=== PATIENT | female | born 1970 | race Caucasian/White ===

== ENCOUNTER 2018-06-09 21:23 | Emergency (ER) | payer OTHER ==
--- NOTE | 2018-06-09 22:21 | EDPHY ---
H & P Stated Complaint: nausea, dizzy, poss altitude sickness Time Seen by Provider: 06/09/18 22:21 HPI/ROS: HPI CHIEF COMPLAINT: Possible altitude illness. HISTORY OF PRESENT ILLNESS: 47-year-old female history of CVA with history of left-sided residual weakness however improved after extensive physical therapy, presents to the emergency room stating that she thinks she may have altitude illness. She just relocated here from [facility] with her . They been here for 2 weeks. Over last week to week and half she has felt somewhat ill. She states that she feels fatigued, nauseous, generalized weakness, at times dizziness, at time slow to respond, headache. This has been worse over the last three days, but present for the last week. She denies any chest pain, denies focal weakness, denies focal numbness or tingling, denies shortness of breath, denies productive cough, denies fever. She states over the last 3 days her symptoms have gotten worse with increasing fatigue, generalized weakness, nausea, headache, and at times dizzy. Past Medical History: History of Cryptogenic CVA. Past Surgical History: Denies recent surgical history Social History: Denies drugs alcohol tobacco. Family History: Noncontributory ROS REVIEW OF SYSTEMS: 10 Systems were reviewed and negative with the exception of the elements mentioned in the history of present illness. Exam Constitutional appears well nontoxic no acute distress triage nursing summary reviewed, vital signs reviewed, awake/alert. Vital signs stable. Eyes normal conjunctivae and sclera, EOMI, PERRLA. HENT normal inspection, atraumatic, moist mucus membranes, no epistaxis, neck supple/ no meningismus, no raccoon eyes. Respiratory clear to auscultation bilaterally, normal breath sounds, no respiratory distress, no wheezing. Cardiovascular rate normal, regular rhythm, no murmur, no edema, distal pulses normal. Gastrointestinal soft, non-tender, no rebound, no guarding, normal bowel sounds, no distension, no pulsatile mass. Genitourinary no CVA tenderness. Musculoskeletal no midline vertebral tenderness, full range of motion, no calf swelling, no tenderness of extremities, no meningismus, good pulses, neurovascularly intact. Skin pink, warm, & dry, no rash, skin atraumatic. Neurologic awake, alert and oriented x 3, AAOx3, moves all 4 extremities equally, motor intact, sensory intact, CN II-XII intact, normal cerebellar, normal vision, normal speech. Psychiatric normal mood/affect. Heme/Lymph/Immune no lymphadenopathy. Differential Diagnosis: Includes but is not limited to in a particular order infection, altitude illness, dehydration, electrolyte disturbance, pneumonia, UTI, influenza, CVA, ACS Medical Decision Making: Plan for this patient IV establishment IV fluid bolus , EKG, troponin, CT scan of the head without contrast, chest x-ray, electrolytes and influenza, UA and re-evaluate. Re-evaluation: CT scan head without contrast negative for acute bleed or stroke. Called to me by Dr. Matamoros. The chest x-ray unremarkable. Blood work reviewed. Negative influenza Elevated LFTs. EKG interpretation by me on record in [employer] system. Impression time of EKG 2300, sinus rhythm rate of 85, RVH present, Q-waves noted inferior to 3 AVF , no ST elevation. No ST depression. Intervals appropriate. 0225: I did go re-evaluate the patient she states she complains of nausea and lightheadedness and headache still. Slightly improved. Patient denies any chest pain or shortness of breath. Denies fever. 0226am: I offered her hospital admission for observation IV hydration and nausea control she is debating if she wants to stay. 0313AM: Patient re-evaluated this time she is declining hospital admission does not want stay wants to go home. I explained to her it is unclear etiology of her symptoms a could be altitude illness. However she has been in [place] for 2 weeks. She does tell me she feels much better after nausea medicine, and IV fluids and oxygen. States her headache resolved. Nausea resolved. Requesting discharge. I will give her take-home pack of Zofran, additionally encouraged to drink lots of fluids. She is interested in getting oxygen is very hard to set up in the middle the night at 3:15 a.m. In the morning. I will have case management follow up with her. Additionally I explained if she has worsening symptoms including shortness of breath, headache, nausea, vomiting, chest pain she needs return emergency room she is comfortable this plan. There is a for discharge under not to stay. I did explain to her that she has elevated liver enzymes and she should have this followed up. The patient reports to me that she was told years ago she had elevated liver enzymes. Do recommend she follows up with primary care doctor have these recheck. Chest x-ray reviewed negative CT scan head without contrast reviewed negative Plan for patient she wants to go home declining hospital observation and admission. Prescription be provided for Zofran Return precautions discussed with her and her return emergency room if worsening symptoms. Comfortable this plan. Source: Patient - Personal History LMP (Females 10-55): 15-21 Days Ago Current Tetanus Diphtheria and Acellular Pertussis (TDAP): Yes - Medical/Surgical History Hx Asthma: No Hx Chronic Respiratory Disease: No Hx Diabetes: No Hx Cardiac Disease: Yes Hx Renal Disease: No Hx Cirrhosis: No Hx Alcoholism: No Hx HIV/AIDS: No Hx Splenectomy or Spleen Trauma: No Other PMH: stroke, pfo closure, heart monitor, - Social History Smoking Status: Never smoked Constitutional: Initial Vital Signs Temperature (C) 37 C 06/09/18 21:36 Heart Rate 99 06/09/18 21:36 Respiratory Rate 20 06/09/18 21:36 Blood Pressure 150/107 H 06/09/18 21:36 O2 Sat (%) 93 06/09/18 21:36 O2 Delivery Mode Room Air O2 (L/minute) 2 Allergies/Adverse Reactions: iodine Allergy (Verified 06/09/18 21:32) Home Medications: Medication Instructions Recorded Aspirin 81mg (*) 06/09/18 Atorvastatin Calcium 06/09/18 CLONAZEPAM 06/09/18 Cyclobenzaprine 06/09/18 Gabapentin 06/09/18 Plavix 06/09/18 Prazosin HCl 06/09/18 Propranolol HCl 06/09/18 VYVANSE 06/09/18 Wellbutrin Sr 06/09/18 Medical Decision Making - Diagnostics Imaging Results: Imaging Impressions Chest X-Ray 06/09/18 22:41 Impression: Negative. Head CT 06/09/18 22:47 Impression: Head CT within normal limits. Results called to Dr. Luke at 11:18 PM General information for patients regarding this examination can be found at [email or web address]. If you have questions or comments about this report, please contact me at (hospital) or [phone] (cell). - Data Points Laboratory Results: Laboratory Results 06/09/18 22:30 06/09/18 22:30 1206/10/18 06/10/18 02:53 00:10 00:10 WBC RBC Hgb Hct MCV MCH MCHC RDW Plt Count MPV Neut % (Auto) Lymph % (Auto) [place] % (Auto) Eos % (Auto) Baso % (Auto) Nucleat RBC Rel Count Absolute Neuts (auto) Absolute Lymphs (auto) Absolute Monos (auto) Absolute Eos (auto) Absolute Basos (auto) Absolute Nucleated RBC Immature Gran % Immature Gran # PT INR APTT Sodium Potassium Chloride Carbon Dioxide Anion Gap BUN Creatinine Estimated GFR Glucose Calcium Magnesium Total Bilirubin Conjugated Bilirubin Unconjugated Bilirubin AST ALT Alkaline Phosphatase POC Troponin I 0.00 ng/mL ng/mL (0.00-0.08) NT-Pro-B Natriuret Pep Total Protein Albumin Lipase Beta HCG, Qual Urine Color YELLOW Urine Appearance CLEAR Urine pH 5.0 (5.0-7.5) Ur Specific Mobile 1.010 (1.002-1.030) Urine Protein NEGATIVE (NEGATIVE) Urine Ketones NEGATIVE (NEGATIVE) Urine Blood NEGATIVE (NEGATIVE) Urine Nitrate NEGATIVE (NEGATIVE) Urine Bilirubin NEGATIVE (NEGATIVE) Urine Urobilinogen NEGATIVE EU EU (0.2-1.0) Ur Leukocyte Esterase NEGATIVE (NEGATIVE) Urine Glucose NEGATIVE (NEGATIVE) Nasal Influenza A PCR Nasal Influenza B PCR Urine Opiates Screen NEGATIVE (NEGATIVE) Urine Barbiturates NEGATIVE (NEGATIVE) Ur Phencyclidine Scrn NEGATIVE (NEGATIVE) Ur Amphetamine Screen NON-NEGATIVE H (NEGATIVE) U Benzodiazepines Scrn NEGATIVE (NEGATIVE) Urine Cocaine Screen NEGATIVE (NEGATIVE) U Marijuana (THC) Screen NON-NEGATIVE H (NEGATIVE) 06/09/18 06/09/18 06/09/18 23:04 22:30 22:30 WBC RBC Hgb Hct MCV MCH MCHC RDW Plt Count MPV Neut % (Auto) Lymph % (Auto) [place] % (Auto) Eos % (Auto) Baso % (Auto) Nucleat RBC Rel Count Absolute Neuts (auto) Absolute Lymphs (auto) Absolute Monos (auto) Absolute Eos (auto) Absolute Basos (auto) Absolute Nucleated RBC Immature Gran % Immature Gran # PT INR APTT Sodium 137 mEq/L mEq/L (135-145) Potassium 4.1 mEq/L mEq/L (3.5-5.2) Chloride 106 mEq/L mEq/L (97-110) Carbon Dioxide 23 mEq/l mEq/l (22-31) Anion Gap 8 mEq/L mEq/L (6-14) BUN 13 mg/dL mg/dL (7-23) Creatinine 1.1 mg/dL H mg/dL (0.6-1.0) Estimated GFR 53 Glucose 110 mg/dL H mg/dL (70-100) Calcium 9.7 mg/dL mg/dL (8.5-10.4) Magnesium 2.1 mg/dL mg/dL (1.6-2.3) Total Bilirubin 0.6 mg/dL mg/dL (0.1-1.4) Conjugated Bilirubin 0.3 mg/dL mg/dL (0.0-0.5) Unconjugated Bilirubin 0.3 mg/dL mg/dL (0.0-1.1) AST 107 IU/L H IU/L (14-46) ALT 272 IU/L H IU/L (9-52) Alkaline Phosphatase 136 IU/L H IU/L (38-126) POC Troponin I NT-Pro-B Natriuret Pep 38 pg/mL pg/mL (0-125) Total Protein 7.7 g/dL g/dL (6.3-8.2) Albumin 4.7 g/dL g/dL (3.5-5.0) Lipase 75 IU/L IU/L (23-300) Beta HCG, Qual NEGATIVE Urine Color Urine Appearance Urine pH Ur Specific Mobile Urine Protein Urine Ketones Urine Blood Urine Nitrate Urine Bilirubin Urine Urobilinogen Ur Leukocyte Esterase Urine Glucose Nasal Influenza A PCR NEGATIVE FOR FLU A (NEGATIVE) Nasal Influenza B PCR NEGATIVE FOR FLU B (NEGATIVE) Urine Opiates Screen Urine Barbiturates Ur Phencyclidine Scrn Ur Amphetamine Screen U Benzodiazepines Scrn Urine Cocaine Screen U Marijuana (THC) Screen 06/09/18 06/09/18 22:30 22:30 WBC 6.40 10^3/uL 10^3/uL (3.80-9.50) RBC 5.07 10^6/uL 10^6/uL (4.18-5.33) Hgb 15.9 g/dL g/dL (12.6-16.3) Hct 46.4 % % (38.0-47.0) MCV 91.5 fL fL (81.5-99.8) MCH 31.4 pg pg (27.9-34.1) MCHC 34.3 g/dL g/dL (32.4-36.7) RDW 13.3 % % (11.5-15.2) Plt Count 258 10^3/uL 10^3/uL (150-400) MPV 10.0 fL fL (8.7-11.7) Neut % (Auto) 53.0 % % (39.3-74.2) Lymph % (Auto) 35.6 % % (15.0-45.0) [place] % (Auto) 7.0 % % (4.5-13.0) Eos % (Auto) 3.3 % % (0.6-7.6) Baso % (Auto) 0.8 % % (0.3-1.7) Nucleat RBC Rel Count 0.0 % % (0.0-0.2) Absolute Neuts (auto) 3.39 10^3/uL 10^3/uL (1.70-6.50) Absolute Lymphs (auto) 2.28 10^3/uL 10^3/uL (1.00-3.00) Absolute Monos (auto) 0.45 10^3/uL 10^3/uL (0.30-0.80) Absolute Eos (auto) 0.21 10^3/uL 10^3/uL (0.03-0.40) Absolute Basos (auto) 0.05 10^3/uL 10^3/uL (0.02-0.10) Absolute Nucleated RBC 0.00 10^3/uL 10^3/uL (0-0.01) Immature Gran % 0.3 % % (0.0-1.1) Immature Gran # 0.02 10^3/uL 10^3/uL (0.00-0.10) PT 12.1 SEC SEC (12.0-15.0) INR 0.87 (0.83-1.16) APTT 25.3 SEC SEC (23.0-38.0) Sodium Potassium Chloride Carbon Dioxide Anion Gap BUN Creatinine Estimated GFR Glucose Calcium Magnesium Total Bilirubin Conjugated Bilirubin Unconjugated Bilirubin AST ALT Alkaline Phosphatase POC Troponin I NT-Pro-B Natriuret Pep Total Protein Albumin Lipase Beta HCG, Qual Urine Color Urine Appearance Urine pH Ur Specific Mobile Urine Protein Urine Ketones Urine Blood Urine Nitrate Urine Bilirubin Urine Urobilinogen Ur Leukocyte Esterase Urine Glucose Nasal Influenza A PCR Nasal Influenza B PCR Urine Opiates Screen Urine Barbiturates Ur Phencyclidine Scrn Ur Amphetamine Screen U Benzodiazepines Scrn Urine Cocaine Screen U Marijuana (THC) Screen Medications Given: Discontinued Medications Sodium Chloride (Ns) 1,000 mls @ 0 mls/hr IV EDNOW ONE; Wide Open PRN Reason: Protocol Stop: 06/09/18 22:42 Last Admin: 06/09/18 22:52 Dose: 1,000 mls Sodium Chloride (Ns) 1,000 mls @ 0 mls/hr IV ONCE ONE PRN Reason: Wide Open Stop: 06/10/18 01:09 Last Admin: 06/10/18 01:11 Dose: 1,000 mls Ondansetron HCl (Zofran) 4 mg IVP EDNOW ONE Stop: 06/09/18 22:42 Last Admin: 06/09/18 22:53 Dose: 4 mg Point of Care Test Results: Chemistry 06/10/18 02:53 POC Troponin I 0.00 ng/mL ng/mL (0.00-0.08) Departure - Departure Disposition: Home, Routine, Self-Care Clinical Impression: Lightheadedness, Nausea Fatigue Qualifiers: Fatigue type: unspecified Qualified Code(s): R53.83 - Other fatigue Headache Qualifiers: Headache type: tension-type Headache chronicity pattern: chronic headache Intractability: not intractable Qualified Code(s): G44.229 - Chronic tension- type headache, not intractable Condition: Good Instructions: Lightheadedness (ED), General Headache (ED) Additional Instructions: 1. Rest 2. Stay well-hydrated 3. Return emergency room if worsening symptoms 4. Follow up with her primary care doctor about your elevated liver enzymes 5. Return if not doing well. Referrals: NONE *PRIMARY CARE P,. [Primary Care Provider] - As per Instructions Jamin Burdick MD [Medical Doctor] - As per Instructions
[2018-06-09] MEDS ORDERED: ONDANSETRON 4 MG/2 ML VIAL IVP ONE (22:41)
[2018-06-09] MEDS ORDERED: NS 1,000 ML IV ONE (22:41)
[2018-06-09 22:51] LABS: PLATELET COUNT 258 10^3/uL (150-400)
[2018-06-09 22:57] LABS: INR 0.87 (0.83-1.16); PROTIME(PATIENT) 12.1 SEC (12.0-15.0)
[2018-06-10] MEDS ORDERED: NS 1,000 ML IV ONE (01:08)
[2018-06-10] MEDS ORDERED: ONDANSETRON 4MG PREPACK#2 BTL TAKEHOME ONE (03:24)
[2018-06-10 03:38] VITALS: BP 138/85
--- NOTE | 2018-06-10 16:26 | ASMTCMCOM ---
CM Note CM Note Notes: Received a CM consult order requesting to followup with pt re:her interest in getting set up w/home O2 for altitude sickness symptoms. Pt did not have any low SpO2 readings during her ED visit so ultimately pt would have to self-pay for home O2. This CM called pt ([phone]) to provide home O2 company options, needed rxn, and also ensure pt has a PCP but had to leave voicemail & have not heard back as of 1630. CM available for further assistance if needed. Date Signed: 06/10/2018 04:25 PM Electronically Signed By:Mee Bustillo RN
--- NOTE | 2018-06-13 07:51 | CPEKG ---
Test Reason : OPEN Blood Pressure : / mmHG Vent. Rate : 085 BPM Atrial Rate : 085 BPM P-R Int : 164 ms QRS Dur : 102 ms QT Int : 408 ms P-R-T Axes : 020 -86 027 degrees QTc Int : 486 ms Sinus rhythm Consider right ventricular hypertrophy Inferior infarct, old Confirmed by Filipe Ash ([id number]) on 06/13/2018 7:50:32 AM Referred By: Confirmed By:Filipe Ash
--- NOTE | 2018-06-13 14:07 | ASMTCMCOM ---
CM Note CM Note Notes: This CM received call today from patient who was in this ED on 06/09/18. Patient states that she is now in [place] and is feeling more SOB and "symptomatic" from the altitude and would like a prescription for O2. Chart reviewed from patient's visit on 06/09, as well as CM note from 06/10. I encouraged patient to return to an emergency room if she was feeling SOB and to follow up with establishing a PCP. I informed her that we would not be able to provide a prescription at this point (4 days after ED visit) without further assessment, especially given her increasing SOB. Patient was polite but quite persistent in her assessment that she "just needed a prescription for oxygen". I reiterated to patient that she did not meet "criteria" for needing O2 while she was in this ED and that even if she would like to self pay for oxygen, she should be seen for further evaluation given her recurrent symptoms which may represent need for medical care. Patient verbalizes understanding. CM available prn for further needs Date Signed: 06/13/2018 02:06 PM Electronically Signed By:Rosetta Lazo RN
== END 2018-06-10 03:38 | disposition home or self-care (01) ==
DX: R53.83 Other fatigue (principal); G44.229 Chronic tension-type headache, not intractable; R11.0 Nausea; R53.1 Weakness; R42 Dizziness and giddiness
CPT/HCPCS: 80305; 84484-PO; 96374; J2405

== ENCOUNTER → 2018-08-17 | Outpatient (CLI) | payer OTHER | LOC: FCPNEURO 20:00 | PROVIDERS: ATTEND Student in an Organized Health Care Education/Training Program | DX: G47.33 Obstructive sleep apnea (adult) (pediatric) (principal) ==